=== PATIENT | female | born 1955 | race Caucasian/White ===

== ENCOUNTER 2017-01-31 21:58 | Emergency (ER) | payer BC, SELFPAY ==
[2017-01-31 22:26] VITALS: BP 177/88
--- NOTE | 2017-01-31 22:51 | EDM.PDOC ---
ED HPI Trauma - General Chief Complaint: Upper Extremity Injury/Pain Stated Complaint: FELL BROKE WRIST Time Seen by Provider: 01/31/17 22:47 Source: Reports: Patient, Family, RN notes reviewed History Limitations: Reports: No limitations - History of Present Illness INITIAL COMMENTS - FREE TEXT/NARRATIVE: 62-year-old female presents to the emergency department today following a fall on outstretched hand she slipped on the ice he is now experiencing pain in her left wrist Allergies/ADRs: Allergies Penicillins Allergy (Verified 01/31/17 22:17) Syncope Home Medications: Ambulatory Orders NK [No Known Home Meds] 01/31/17 [Confirmed 01/31/17] 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: - Past Surgical History Female Surgical History: Reports: Breast biopsy Social & Family History - Tobacco Use Smoking Status *Q: Never Smoker - Caffeine Use Caffeine Use: Reports: Coffee - Recreational Drug Use Recreational Drug Use: No Review of Systems - Review of Systems Review Of Systems: See Below Constitutional: Reports: no symptoms Musculoskeletal: Reports: joint pain (wrist pain left) Skin: Reports: no symptoms Trauma Exam - Physical Exam Exam: See Below Text/Narrative:: examination of the left upper extremity she does have a deformity at the left wrist there is no tenderness at the shoulder no tenderness at the elbow she has limited range of motion secondary to pain the wrist she has full range of motion of all digits radial pulses 2+, sensation is intact ED TRAUMA EXTREMITY PROCEDURES - Splinting Left Upper Extremity Splint site: wrist Pre-procedure NV status: normal Post-procedure NV status: normal Splint material: fiberglass Splint design: volar Applied & form fitted by: provider, nurse Provider post-splint application NV check: NV status normal, good position Complications: No Course - Vital Signs Last Recorded V/S: Last Vital Signs Temp 99.9 F 01/31/17 22:24 Pulse 112 H 01/31/17 22:24 Resp 16 01/31/17 22:24 BP 177/88 H 01/31/17 22:24 Pulse Ox 100 01/31/17 22:24 - Orders/Labs/Meds Orders: Active Orders 24 hr Category Date Time Status Wrist Comp Min 3V Lt [CR] Stat Exams 01/31/17 22:05 Taken Departure - Departure Time of Disposition: 22:50 Disposition: Home, Self-Care 01 Condition: good Clinical Impression: Closed left radial fracture Qualifiers: Encounter type: initial encounter Radius location: distal Fracture morphology: other fracture Qualified Code(s): S52.592A - Other fractures of lower end of left radius, initial encounter for closed fracture Forms: ED Department Discharge Additional Instructions: use hydrocodone as needed for pain control, please call the orthopedic clinic in the morning for your appointment time in the afternoon call or return to the emergency department with worsening of symptoms - My Orders Last 24 Hours: My Active Orders 01/31/17 22:05 Wrist Comp Min 3V Lt [CR] Stat - Assessment/Plan Last 24 Hours: My Active Orders 01/31/17 22:05 Wrist Comp Min 3V Lt [CR] Stat Plan: Assessment Acuity = acute Site and laterality = left radius fracture distal closed compression type Etiology = Secondary to fall on outstretched hand Manifestations = pain Location of injury = home Lab values = x-ray reveals the fracture described above official read radiology is pending Plan discussed the case with Dr. Tong orthopedics recommended the lower splint followup with him in clinic on Thursday Patient was in agreement with the plan all questions were answered, they were instructed to return to the emergency department or call for worsening symptoms. This note was dictated using [employer] voice recognition software please call with any questions.
--- NOTE | 2017-02-02 08:38 | CR ---
Wrist Comp Min 3V Lt INDICATION: foosh, pain FINDINGS: Acute, mildly displaced, mildly impacted fracture through the distal left radial metaphysi s. There is mild volar apex angulation. Minimally displaced acute fracture through the ulnar styloid process. Soft tissue swelling about the left wrist.
== END 2017-01-31 23:00 | disposition home or self-care (01) ==
LOC: JP.ED 21:58
DX: S52.592A Other fractures of lower end of left radius, initial encounter for closed fracture (principal); Z88.0 Allergy status to penicillin; W00.0XXA Fall on same level due to ice and snow, initial encounter
CPT/HCPCS: 29125; 73110-26-LT; 73110-LT; 99284-25

== ENCOUNTER 2017-02-03 08:31 | Day surgery (SDC) | payer BC ==
[~2017-02-03 08:31] MED LIST: Lactated Ringers 1,000 ML IV SCH
[2017-02-03] MEDS ORDERED: Midazolam 1 MG/ML 5 ML SDV ONE (09:11)
[2017-02-03] MEDS ORDERED: fentaNYL 250 MCG/5 ML SDV ONE (09:11)
[2017-02-03] MEDS ORDERED: Propofol 200 MG/20 ML SDV ONE (09:11)
[2017-02-03] MEDS ORDERED: Clindamycin Phosphate 900 MG in Sodium Chloride 0.9% 100 ML IV ONE (09:30)
--- NOTE | 2017-02-03 12:00 | OR ---
DATE OF PROCEDURE: 02/03/2017 PREOPERATIVE DIAGNOSIS: Left distal radius fracture closed. POSTOPERATIVE DIAGNOSIS: Left distal radius fracture closed. PROCEDURE: Closed reduction and casting of left distal radius. CORRECTIONAL AGENCY DIRECTOR: FIFI Londono. ANESTHESIA: Conscious sedation. ESTIMATED BLOOD LOSS: Zero. FLUID: Lactated Ringer solution. COMPLICATIONS: None. SPECIMEN: None. DISCHARGE DISPOSITION: Stable to PACU. INDICATIONS FOR THE PROCEDURE: The patient was seen preoperatively in the clinic after a fall. She was seen in the emergency department and was found have a distal radius fracture. She was splinted and followed up with the clinic. Preoperative imaging confirmed the above- mentioned diagnosis. Risks and benefits of the procedure were explained to the patient and informed consent was obtained. DETAILS OF PROCEDURE: The patient was seen preoperatively by myself and the Anesthesia staff in the preoperative holding area where the operative site was marked. She was brought to the operative suite by the Anesthesia staff where a conscious sedation was administered. Time-out was called identifying the correct patient, correct procedure, correct site, and antibiotics to be within appropriate period of time. All extremities were found to be well padded. The fluoroscopy unit was used to visualize the fracture site. Minor reduction was then made for correct alignment. A long arm cast was then placed. Final films were taken. The patient was allowed to awaken, taken to the PACU in stable condition. Matt Tong DO /[id number]
[2017-02-03 13:21] VITALS: BP 106/71
== END 2017-02-03 13:26 | disposition home or self-care (01) ==
LOC: JP.SDS 08:31
PROVIDERS: ATTEND Orthopaedic Surgery
DX: S52.572A Other intraarticular fracture of lower end of left radius, initial encounter for closed fracture (principal); Z88.0 Allergy status to penicillin
CPT/HCPCS: 25605; 76001; J2250; J2704; J3010; 99203

== ENCOUNTER 2017-02-24 07:35 | Day surgery (SDC) | payer BC, SELFPAY ==
[2017-02-24] MEDS ORDERED: Lactated Ringers 1,000 ML IV SCH (08:00)
[2017-02-24] MEDS ORDERED: Dexamethasone 4 MG/ML SDV ONE (09:16)
[2017-02-24] MEDS ORDERED: Ondansetron 4 MG/2 ML SDV ONE (09:16)
[2017-02-24] MEDS ORDERED: Neostigmine Methylsulfate 1 MG/ML 5 ML Syringe ONE (09:16)
[2017-02-24] MEDS ORDERED: Rocuronium 50 MG/5 ML Vial ONE (09:16)
[2017-02-24] MEDS ORDERED: Succinylcholine/Normal Saline 200 MG/10 ML Syringe ONE (09:16)
[2017-02-24] MEDS ORDERED: Propofol 200 MG/20 ML SDV ONE (09:16)
[2017-02-24] MEDS ORDERED: fentaNYL 250 MCG/5 ML SDV ONE (09:17)
[2017-02-24] MEDS: Bupivacaine 0.5%/EPINEPHrine 1:200,000 50 ML MDV ONE ×2 (09:17→10:44)
[2017-02-24] MEDS: Povidone-Iodine 10% Soln 118.25 ML Bottle ONE ×2 (09:18→10:13)
[2017-02-24] MEDS ORDERED: Clindamycin Phosphate 900 MG in Sodium Chloride 0.9% 100 ML IV ONE (09:30)
[2017-02-24] MEDS ORDERED: Naloxone 0.4 MG/ML SDV ONE (10:57)
[2017-02-24] MEDS ORDERED: Acetaminophen/oxyCODONE 325-5 MG Tab PO ONE (11:51)
[2017-02-24 12:56] VITALS: BP 171/85
--- NOTE | 2017-02-25 07:41 | OR ---
DATE OF PROCEDURE: 02/24/2017 PREOPERATIVE DIAGNOSIS: Left distal radius fracture, closed. POSTOPERATIVE DIAGNOSIS: Left distal radius fracture, closed. PROCEDURE: Open reduction and internal fixation, left distal radius. [employer]HALT DISTRIBUTOR OPERATOR: Heidy Aguilar NP. ANESTHESIA: Laryngeal mask airway, general anesthesia. FLUID: Lactated Ringer solution. ESTIMATED BLOOD LOSS: 20 mL. COMPLICATIONS: None. SPECIMEN: None. DISCHARGE DISPOSITION: Stable to PACU. INSTRUMENTATION: [employer] set. INDICATIONS FOR THE PROCEDURE: The patient was well known to us. She had had a previous distal radius fracture. She was placed into a cast after closed reduction. Unfortunately at 2-week follow up, it was obvious that she had an apex volar 30-degree angulated distal radius fracture. Upon further questioning, she had been feeding her horses with 5-gallon pails using that hand. Risks and benefits of the procedure were explained to the patient. Informed consent was obtained. DETAILS OF PROCEDURE: The patient was seen preoperatively by myself and the anesthesia staff in the preoperative holding area where the operative site was marked. She was brought to the operative suite by the anesthesia staff where general anesthesia was administered. A well-padded tourniquet was placed on left upper extremity. The left upper extremity was then prepped and draped in sterile manner. Time-out was called identifying the correct patient, correct procedure, the correct site, and antibiotics had been within an appropriate period of time. The Esmarch was used to exsanguinate the left upper extremity. Tourniquet was raised to 250 mmHg for 35 minutes and let down during closing. An incision was made over the flexor carpi radialis tendon at the carpus approximately 10-12 cm. The FCR was then identified and the muscle sheath was then incised. The muscle was then retracted radially to protect the radial artery and then the base of the FCR was then incised. The pronator was then identified and was incised on its radial margin and then reflected ulnarly. The entire distal radius was then visualized on the volar surface with the aid of an elevator. I did remove some callus with an elevator as well as rongeurs. I then used an osteotome to enter the fracture site and then reduce the fracture. This was confirmed on fluoroscopy. After this had been achieved, I placed my plate and then placed a cortical screw and then drilled two of the more radial proximal locking holes. We then placed screws there then confirmed our position. We then filled the remainder of the holes with some lockers and nonlocking partially threaded screws with the exception of the radial styloid screw. Some reduction was actually achieved with the non lockers on the proximal row. We then filled the remaining two cortical holes and then took final films which provided good alignment without any screw entering the radiocarpal joint. We then irrigated with saline and then closed with 2-0 Vicryl sutures followed by 3-0 nylon interrupted sutures followed by sterile dressing followed by splint. The patient was then allowed to awaken from anesthesia and taken to the PACU in stable condition. Matt Tong DO /[id number]
== END 2017-02-24 15:52 | disposition home or self-care (01) ==
LOC: JP.SDS 07:35
PROVIDERS: ATTEND Orthopaedic Surgery
PROC: 0PSJ04Z Reposition Left Radius with Internal Fixation Device, Open Approach (ICD-10-PCS; principal; 2017-02-24)
DX: S52.502A Unspecified fracture of the lower end of left radius, initial encounter for closed fracture (principal); X58.XXXA Exposure to other specified factors, initial encounter
CPT/HCPCS: 25607; 76000; A9270; C1713; J1100; J2405; J2704; J3010; J7030; J7120; J2310; S0077